=== PATIENT | male | born 1935 | race Caucasian/White ===

== ENCOUNTER 2017-02-14 17:08 | Emergency (ER) | payer MEDICARE ==
[2016-07-28 13:57] VITALS: BMI 29.1
[~2017-02-14 17:08] MED LIST: BAYER CHEWABLE81 MG PO; CARTIA XT180 MG PO; COZAAR50 MG PO; ELIQUIS5 MG PO; K-DUR20 MEQ PO; LIPITOR40 MG PO; LISINOPRIL10 MG PO; NIACIN100 MG PO; OSTEO BI-FLEX1 EAC1 PO; PAMELOR75 MG PO; PREVACID15 MG PO; TIAZAC/CARDIZE180 MG PO; VITAMIN B-121000 MCG PO; VITAMIN C1000 MG PO; VITAMIN D31000 UNIT PO
[2017-02-14 18:30] LABS: BASOPHILS 0.2 % (0.0-2.0); EOSINOPHILS 1.2 % (0-7); HEMATOCRIT 39.5 % (42.0-54.0); HEMOGLOBIN 13.1 g/dL (13.5-17.5); IMMATURE GRANULOCYTES 0.1 % (0-5); MCH 35.3 pg (26.0-34.0); MCHC 33.2 g/dL (31.0-37.0); MCV 106.5 fL (80.0-100.0); MEAN PLATELET VOLUME 10.4 fL (7.4-10.4); MONOCYTES 7.5 % (2-11); PLATELET COUNT 177 10x3/uL (130-400); RBC 3.71 10x6/uL (4.20-6.10); RDW 13.7 % (11.5-14.5)
[2017-02-14 18:38] LABS: INR 0.91 (0.85-1.17); PROTIME 12.1 SECONDS (11.6-15.0)
[2017-02-14 18:47] LABS: ALBUMIN 4.1 g/dL (3.4-5.0); ALKALINE PHOSPHATASE 112 U/L (46-116); ALT (SGPT) 26 U/L (10-68); AMYLASE - SERUM 57 U/L (25-115); BILIRUBIN - TOTAL 0.31 mg/dL (0.2-1.3); CALC OSMOLALITY 280 mosm/kg (275-300); CALCIUM 9.2 mg/dL (8.5-10.1); CARBON DIOXIDE 29.3 mmol/L (21.0-32.0); CHLORIDE - SERUM 104 mmol/L (98-107); CREATININE - SERUM 0.9 mg/dL (0.6-1.3); GLUCOSE 114 mg/dL (74-106); LIPASE 83 U/L (73-393); POTASSIUM - SERUM 4.3 mmol/L (3.5-5.1); PROTEIN - SERUM 6.8 g/dL (6.4-8.2); SODIUM 141 mmol/L (136-145); UREA NITROGEN 11 mg/dL (7-18); eGFR NON AFRICAN AMERICAN 86 mL/min (90-120)
[2017-02-14 18:59] LABS: APTT < 20.0 SECONDS (22.8-39.4)
== END 2017-02-14 20:09 | disposition home or self-care (01) ==
LOC: D.ER 17:08
PROVIDERS: Family Medicine
DX: R10.13 Epigastric pain (principal); I10 Essential (primary) hypertension; I21.4 Non-ST elevation (NSTEMI) myocardial infarction; I26.99 Other pulmonary embolism without acute cor pulmonale

== ENCOUNTER 2017-12-17 19:20 | Observation (INO) | payer MEDICARE ==
[~2017-12-17] VITALS: Ht 157.5 cm; Wt 72.0 kg
[2017-12-17 20:53] LABS: BASOPHILS 0 % (0-2); EOSINOPHILS 0 % (0-7); HEMATOCRIT 42.7 % (42.0-54.0); HEMOGLOBIN 14.6 g/dL (13.5-17.5); IMMATURE GRANULOCYTES 0.1 % (0-5); LYMPHOCYTES 21.2 % (15-50); MCH 35.9 pg (26.0-34.0); MCHC 34.2 g/dL (31.0-37.0); MCV 104.9 fL (80.0-100.0); MEAN PLATELET VOLUME 10.7 fL (7.4-10.4); MONOCYTES 9.6 % (2-11); NEUTROPHILS 69.1 % (40-80); PLATELET COUNT 170 10x3/uL (130-400); RBC 4.07 10x6/uL (4.20-6.10); RDW 14.1 % (11.5-14.5); WBC 8.4 10x3/uL (4.8-10.8)
[2017-12-18 03:04] VITALS: BP 127/59; BMI 29.6
[2017-12-18 07:00] VITALS: BP 122/86
[2017-12-18 12:33] LABS: ALBUMIN 3.1 g/dL (3.4-5.0); ALKALINE PHOSPHATASE 91 U/L (46-116); ALT (SGPT) 37 U/L (10-68); BILIRUBIN - TOTAL 0.43 mg/dL (0.2-1.3); CALC OSMOLALITY 285 mosm/kg (275-300); CALCIUM 8.1 mg/dL (8.5-10.1); CARBON DIOXIDE 28.1 mmol/L (21.0-32.0); CHLORIDE - SERUM 104 mmol/L (98-107); GLUCOSE 99 mg/dL (74-106); POTASSIUM - SERUM 3.5 mmol/L (3.5-5.1); PROTEIN - SERUM 5.7 g/dL (6.4-8.2); SODIUM 142 mmol/L (136-145); UREA NITROGEN 20 mg/dL (7-18); eGFR NON AFRICAN AMERICAN 76 mL/min (90-120)
[2017-12-18 12:41] VITALS: BP 155/70
[2017-12-18 17:02] VITALS: BP 140/74
[2017-12-18 22:06] VITALS: BP 120/57
[2017-12-19 05:05] VITALS: BP 103/61
[2017-12-19 05:12] LABS: BASOPHILS 0 % (0-2); EOSINOPHILS 0.1 % (0-7); HEMATOCRIT 37.5 % (42.0-54.0); HEMOGLOBIN 12.6 g/dL (13.5-17.5); IMMATURE GRANULOCYTES 0.1 % (0-5); LYMPHOCYTES 28.7 % (15-50); MCHC 33.6 g/dL (31.0-37.0); MCV 104.2 fL (80.0-100.0); MEAN PLATELET VOLUME 10.3 fL (7.4-10.4); MONOCYTES 8.1 % (2-11); PLATELET COUNT 143 10x3/uL (130-400); RDW 13.9 % (11.5-14.5); WBC 7.2 10x3/uL (4.8-10.8)
[2017-12-19 05:37] LABS: CALC OSMOLALITY 280 mosm/kg (275-300); CARBON DIOXIDE 26.8 mmol/L (21.0-32.0); CHLORIDE - SERUM 104 mmol/L (98-107); CREATININE - SERUM 0.9 mg/dL (0.6-1.3); GLUCOSE 88 mg/dL (74-106); POTASSIUM - SERUM 3.2 mmol/L (3.5-5.1); SODIUM 141 mmol/L (136-145); UREA NITROGEN 16 mg/dL (7-18); eGFR NON AFRICAN AMERICAN 86 mL/min (90-120)
[2017-12-19 09:37] VITALS: BP 110/53
[2017-12-19 10:56] VITALS: Ht 157.5 cm; Wt 72.0 kg
[2017-12-19 11:41] VITALS: BP 114/61
[2017-12-19] MEDS ORDERED: TAMIFLU75 MG PO (14:02)
== END 2017-12-19 16:05 | disposition home or self-care (01) ==
LOC: D.ER 19:20 → D.M2 12-18 00:41 → OBSVTIME 12-18 00:41 → D.M2 12-19 16:05
PROVIDERS: Emergency Medicine; Internal Medicine Nephrology
DX: J10.1 Influenza due to other identified influenza virus with other respiratory manifestations (principal); J96.01 Acute respiratory failure with hypoxia; K21.9 Gastro-esophageal reflux disease without esophagitis; I25.10 Atherosclerotic heart disease of native coronary artery without angina pectoris; I10 Essential (primary) hypertension; Z86.73 Personal history of transient ischemic attack (TIA), and cerebral infarction without residual deficits; Z86.711 Personal history of pulmonary embolism

== ENCOUNTER → 2018-02-14 14:34 | Outpatient (CLI) | payer MEDICARE ==
[2017-12-19 10:56] VITALS: BMI 29.0
[~2018-02-14 14:34] MED LIST changes: +TAMIFLU75 MG PO
== END | disposition home or self-care (01) ==
LOC: D.US 14:34
DX: R60.9 Edema, unspecified (principal); M79.662 Pain in left lower leg; M79.661 Pain in right lower leg

== ENCOUNTER 2018-03-02 12:20 | Emergency (ER) | payer MEDICARE ==
[2017-12-19 10:56] VITALS: BMI 29.0
[2018-03-02 13:19] LABS: APPEARANCE CLEAR (CLEAR); BILIRUBIN NEGATIVE (NEGATIVE); COLOR YELLOW (YELLOW); GLUCOSE NEGATIVE (NEGATIVE); KETONE NEGATIVE (NEGATIVE); NITRITE NEGATIVE (NEGATIVE); PROTEIN NEGATIVE (NEGATIVE); SPECIFIC GRAVITY 1.005 (1.005-1.020); UROBILINOGEN NORMAL (NORMAL)
[2018-03-02 13:42] LABS: BASOPHILS 0 % (0-2); EOSINOPHILS 2.5 % (0-7); HEMATOCRIT 40.2 % (42.0-54.0); HEMOGLOBIN 13.6 g/dL (13.5-17.5); LYMPHOCYTES 36.2 % (15-50); MCH 36.2 pg (26.0-34.0); MCHC 33.8 g/dL (31.0-37.0); MCV 106.9 fL (80.0-100.0); MEAN PLATELET VOLUME 10.1 fL (7.4-10.4); MONOCYTES 12.1 % (2-11); NEUTROPHILS 49.2 % (40-80); PLATELET COUNT 200 10x3/uL (130-400); RBC 3.76 10x6/uL (4.20-6.10); RDW 14.3 % (11.5-14.5); WBC 4.9 10x3/uL (4.8-10.8)
[2018-03-02 13:50] LABS: INR 1.41 (0.85-1.17); PROTIME 16.8 SECONDS (11.6-15.0)
[2018-03-02 13:51] LABS: APTT 37.2 SECONDS (22.8-39.4)
[2018-03-02 13:57] LABS: ALBUMIN 3.9 g/dL (3.4-5.0); ALKALINE PHOSPHATASE 107 U/L (46-116); ALT (SGPT) 21 U/L (10-68); BILIRUBIN - TOTAL 0.39 mg/dL (0.2-1.3); CALC OSMOLALITY 284 mosm/kg (275-300); CALCIUM 9.6 mg/dL (8.5-10.1); CARBON DIOXIDE 27.6 mmol/L (21.0-32.0); CHLORIDE - SERUM 105 mmol/L (98-107); GLUCOSE 92 mg/dL (74-106); POTASSIUM - SERUM 3.8 mmol/L (3.5-5.1); PROTEIN - SERUM 7.3 g/dL (6.4-8.2); SODIUM 143 mmol/L (136-145); UREA NITROGEN 12 mg/dL (7-18); eGFR NON AFRICAN AMERICAN 76 mL/min (90-120)
[2018-03-02 14:05] LABS: CREATINE KINASE 52 UL (21-232); LIPASE 73 U/L (73-393); PRO BNP 236 pg/mL (0-450); TROPONIN-I < 0.017 ng/mL (0.000-0.060)
== END 2018-03-02 14:42 | disposition home or self-care (01) ==
LOC: D.ER 12:20
PROVIDERS: Family Medicine
DX: R53.1 Weakness (principal); Z86.718 Personal history of other venous thrombosis and embolism; I10 Essential (primary) hypertension; I73.00 Raynaud's syndrome without gangrene

== ENCOUNTER 2018-11-16 09:41 | Observation (INO) | payer MEDICARE, OTHER ==
[~2018-11-16] VITALS: Ht 157.5 cm; Wt 72.7 kg
[2018-11-16] VITALS (7 sets, daily range): BP systolic 112–131; BP diastolic 56–77; Ht 157.5 cm; Wt 72.7 kg
[2018-11-16] MEDS ORDERED: METOLAZONE2.5 MG PO (09:57)
[2018-11-16] MEDS ORDERED: LASIX20 MG PO (09:57)
[2018-11-16] MEDS ORDERED: CLOTRIM ANTIFUN15 GM TOPICAL (10:00)
[2018-11-16] MEDS ORDERED: KENALOG 0.1% OI80 GM TOPICAL (10:00)
[2018-11-16 10:28] LABS: BASOPHILS 0.1 % (0-2); EOSINOPHILS 1.5 % (0-7); HEMATOCRIT 44.7 % (42.0-54.0); HEMOGLOBIN 15.2 g/dL (13.5-17.5); IMMATURE GRANULOCYTES 0.1 % (0-5); LYMPHOCYTES 30.8 % (15-50); MCH 35.8 pg (26.0-34.0); MCV 105.2 fL (80.0-100.0); MEAN PLATELET VOLUME 10.7 fL (7.4-10.4); MONOCYTES 8.1 % (2-11); NEUTROPHILS 59.4 % (40-80); RBC 4.25 10x6/uL (4.20-6.10); RDW 13.9 % (11.5-14.5); WBC 9.3 10x3/uL (4.8-10.8)
[2018-11-16 10:31] LABS: PLATELET COUNT 241 10x3/uL (130-400)
[2018-11-16 10:36] LABS: APTT 28.1 SECONDS (22.8-39.4); INR 1.02 (0.85-1.17); PROTIME 12.9 SECONDS (11.6-15.0)
[2018-11-16 10:43] LABS: ALBUMIN 3.9 g/dL (3.4-5.0); ALKALINE PHOSPHATASE 121 U/L (46-116); ALT (SGPT) 26 U/L (10-68); BILIRUBIN - TOTAL 0.48 mg/dL (0.2-1.3); CALC OSMOLALITY 281 mosm/kg (275-300); CALCIUM 9.4 mg/dL (8.5-10.1); CARBON DIOXIDE 25.5 mmol/L (21.0-32.0); CHLORIDE - SERUM 99 mmol/L (98-107); CREATININE - SERUM 1.6 mg/dL (0.6-1.3); GLUCOSE 113 mg/dL (74-106); POTASSIUM - SERUM 4.5 mmol/L (3.5-5.1); PROTEIN - SERUM 6.9 g/dL (6.4-8.2); SODIUM 138 mmol/L (136-145); UREA NITROGEN 26 mg/dL (7-18); eGFR NON AFRICAN AMERICAN 44 mL/min (90-120)
[2018-11-16 10:53] LABS: CKMB 0.4 U/L (0.0-3.6); CREATINE KINASE 50 UL (21-232)
[2018-11-16 10:54] LABS: TROPONIN-I < 0.017 ng/mL (0.000-0.060)
[2018-11-16 12:28] LABS: APPEARANCE CLEAR (CLEAR); BILIRUBIN NEGATIVE (NEGATIVE); COLOR YELLOW (YELLOW); GLUCOSE NEGATIVE (NEGATIVE); KETONE NEGATIVE (NEGATIVE); NITRITE NEGATIVE (NEGATIVE); PROTEIN NEGATIVE (NEGATIVE); SPECIFIC GRAVITY 1.015 (1.005-1.020); UROBILINOGEN NORMAL (NORMAL)
--- NOTE | 2018-11-16 13:22 | MORECARE ---
CASE MANAGEMENT DISCHARGE SUMMARY PATIENT: NEISHA GAN UNIT: [id number] ADM DATE: 11/16/18 AGE: 83 : 35 SEX: M ROOM/BED: D.2109 AUTHOR: TORIBIO LUKE PHYSICIAN: REFERRING PHYSICIAN: MASTER GARCIA MD DATE OF SERVICE: 11/16/18 Discharge Plan Patient Name: [facility]ISHA GAN [facility] [facility] 1935 Planned Disposition: Anticipated Discharge Date: Discharge Date: Expected LOS: Initial Reviewer: [email or web address] Initial Review Date: 11/16/2018 Generated: 11/16/18 2:22 pm Patient Name: NEISHA GAN Page 24017 at 1322 All edits/amendments must be made on the electronic document DICTATION DATE: 11/16/18 1322 MECHANICAL COMMISSIONING ENGINEER: MARK 11/16/18 1322 RPT#: [id number] DC DATE: STATUS: ADM IN [facility] [address] [place] [address] END OF REPORT
--- NOTE | 2018-11-16 13:30 | MORECARE ---
CASE MANAGEMENT DISCHARGE SUMMARY PATIENT: NEISHA CHRISTIAN UNIT: [id number] ADM DATE: 11/16/18 AGE: 83 : 35 SEX: M ROOM/BED: D.2109 AUTHOR: TORIBIO LUKE PHYSICIAN: REFERRING PHYSICIAN: MASTER GARCIA MD DATE OF SERVICE: 11/16/18 Discharge Plan Patient Name: NEISHA CHRISTIAN [facility] [facility] 1935 Planned Disposition: Anticipated Discharge Date: Discharge Date: Expected LOS: Initial Reviewer: [email or web address] Initial Review Date: 11/16/2018 Generated: 11/16/18 2:30 pm DCPIA - Discharge Planning Initial Assessment Updated by [email or web address]: Ann Benavidez on 11/16/18 1:25 pm * Is the patient Alert and Oriented? Yes * How many steps to enter\exit or inside your home? ramp w/lubin * PCP Dr. Raymon Knight * Pharmacy [facility] * Preadmission Environment Home with Family * ADLs Independent * Equipment Cane * Other Equipment Na * List name and contact numbers for known caregivers / representatives who currently or will assist patient after discharge: Anamaria Christian (spouse) [phone]. * Verbal permission to speak to the caregivers and representatives has been obtained from the patient. Yes * Community resources currently utilized None * Please name any agencies selected above. NA * Additional services required to return to the preadmission environment? Yes * Can the patient safely return to the preadmission environment? No * Has this patient been hospitalized within the prior 30 days at any hospital? No Last DP export: 11/16/18 12:22 Patient Name: NEISHA CHRISTIAN Page [id number] at 1330 All edits/amendments must be made on the electronic document DICTATION DATE: 11/16/18 1330 CARDROOM ATTENDANT: MARK 11/16/18 1330 RPT#: [id number] DC DATE: STATUS: ADM IN [facility] [address] [place] [address] END OF REPORT
--- NOTE | 2018-11-16 13:38 | MORECARE ---
CASE MANAGEMENT DISCHARGE SUMMARY PATIENT: NEISHA CHRISTIAN UNIT: [id number] ADM DATE: 11/16/18 AGE: 83 : 35 SEX: M ROOM/BED: D.2109 AUTHOR: MARLY,DOC PHYSICIAN: REFERRING PHYSICIAN: MASTER GARCIA MD DATE OF SERVICE: 11/16/18 Discharge Plan Patient Name: NEISHA CHRISTIAN Facility: [facility]:[place] : 1935 Planned Disposition: Anticipated Discharge Date: Discharge Date: Expected LOS: Initial Reviewer: [email or web address] Initial Review Date: 11/16/2018 Generated: 11/16/18 2:38 pm Comments DCP- Discharge Planning Updated by [email or web address]: Ann Benavidez on 11/16/18 12:[address] CM met with patient & in ER to discuss dc needs/plans. Patient gives permission to speak with Anamaria present. A/O X3. PCP: Dr. Raymon Knight. Pharmacy: [facility]. HHS: Never. DME: Cane, ramp w/rails into the home. Emergency contact: Anamaria Christian ( 8 years) [phone]. Discussed HHS, OP & Rehab with patient. States he was Independent with ADL's up until just before Valentines, when he became extremely weak. Patient would BENEFIT REHAB EVAL and is in agreement to same. Denies being hospitalized within past 30 days. CM will follow and assist with dc needs/plans PRN. Ann Benavidez RN CM DCPIA - Discharge Planning Initial Assessment Updated by [email or web address]: Ann Benavidez on 11/16/18 1:25 pm * Is the patient Alert and Oriented? Yes * How many steps to enter\exit or inside your home? ramp w/lubin * PCP Dr. Raymon Knight * Pharmacy [facility] * Preadmission Environment Home with Family * ADLs Independent * Equipment Cane * Other Equipment Na * List name and contact numbers for known caregivers / representatives who currently or will assist patient after discharge: Anamaria Christian (spouse) [phone]. * Verbal permission to speak to the caregivers and representatives has been obtained from the patient. Yes * Community resources currently utilized None * Please name any agencies selected above. NA * Additional services required to return to the preadmission environment? Yes * Can the patient safely return to the preadmission environment? No * Has this patient been hospitalized within the prior 30 days at any hospital? No Last DP export: 11/16/18 12:30 Patient Name: NEISHA CHRISTIAN Page 14219 at 1338 All edits/amendments must be made on the electronic document DICTATION DATE: 11/16/181337 REGISTERED VETERINARY TECHNICIAN: MARK 11/16/181337 RPT#: [id number] DC DATE: STATUS: ADM IN [facility] [address] [place] [address] END OF REPORT
[2018-11-17 03:45] VITALS: BP 135/70
[2018-11-17 06:02] LABS: BASOPHILS 0.2 % (0-2); EOSINOPHILS 2.1 % (0-7); HEMATOCRIT 37.2 % (42.0-54.0); HEMOGLOBIN 12.2 g/dL (13.5-17.5); IMMATURE GRANULOCYTES 0.2 % (0-5); LYMPHOCYTES 31.4 % (15-50); MCH 34.6 pg (26.0-34.0); MCHC 32.8 g/dL (31.0-37.0); MCV 105.4 fL (80.0-100.0); MEAN PLATELET VOLUME 10.8 fL (7.4-10.4); MONOCYTES 10.4 % (2-11); NEUTROPHILS 55.7 % (40-80); PLATELET COUNT 205 10x3/uL (130-400); RBC 3.53 10x6/uL (4.20-6.10); RDW 13.9 % (11.5-14.5); WBC 6.2 10x3/uL (4.8-10.8)
[2018-11-17 06:03] LABS: ANION GAP 11.6 mmol/L (8-16); BILIRUBIN - TOTAL 0.34 mg/dL (0.2-1.3); CALCIUM 8.5 mg/dL (8.5-10.1); CARBON DIOXIDE 28.3 mmol/L (21.0-32.0); CREATININE - SERUM 1.2 mg/dL (0.6-1.3); MAGNESIUM - SERUM 1.6 mg/dL (1.8-2.4); POTASSIUM - SERUM 3.9 mmol/L (3.5-5.1); PROTEIN - SERUM 5.8 g/dL (6.4-8.2)
[2018-11-17 06:04] LABS: ALBUMIN 2.9 g/dL (3.4-5.0)
[2018-11-17 08:13] VITALS: BP 158/69
--- NOTE | 2018-11-17 09:17 | MORECARE ---
CASE MANAGEMENT DISCHARGE SUMMARY PATIENT: NEISHA CHRISTIAN UNIT: [id number] ADM DATE: 11/16/18 AGE: 83 : 35 SEX: M ROOM/BED: D.2109 AUTHOR: MARLY,DOC PHYSICIAN: REFERRING PHYSICIAN: MASTER GARCIA MD DATE OF SERVICE: 11/17/18 Discharge Plan Patient Name: NEISHA CHRISTIAN Facility: [facility]:[place] : 1935 Planned Disposition: Inpatient Rehab Anticipated Discharge Date: Discharge Date: Expected LOS: Initial Reviewer: [email or web address] Initial Review Date: 11/16/2018 Generated: 11/17/18 10:17 am DCP- Discharge Planning Updated by [email or web address]: Ann Benavidez on 11/16/18 12:[address] CM met with patient & in ER to discuss dc needs/plans. Patient gives permission to speak with Anamaria present. A/O X3. PCP: Dr. Raymon Knight. Pharmacy: [facility]. HHS: Never. DME: Cane, ramp w/rails into the home. Emergency contact: Anamaria Christian ( 8 years) [phone]. Discussed HHS, OP & Rehab with patient. States he was Independent with ADL's up until just before [place], when he became extremely weak. Patient would BENEFIT REHAB EVAL and is in agreement to same. Denies being hospitalized within past 30 days. CM will follow and assist with dc needs/plans PRN. Ann Benavidez RN, CM DCPIA - Discharge Planning Initial Assessment Updated by [email or web address]: Ann Benavidez on 11/16/18 1:25 pm * Is the patient Alert and Oriented? Yes * How many steps to enter\exit or inside your home? ramp w/lubin * PCP Dr. Raymon Knight * Pharmacy [facility] * Preadmission Environment Home with Family * ADLs Independent * Equipment Cane * Other Equipment Na * List name and contact numbers for known caregivers / representatives who currently or will assist patient after discharge: Anamaria Christian (spouse) [phone]. * Verbal permission to speak to the caregivers and representatives has been obtained from the patient. Yes * Community resources currently utilized None * Please name any agencies selected above. NA * Additional services required to return to the preadmission environment? Yes * Can the patient safely return to the preadmission environment? No * Has this patient been hospitalized within the prior 30 days at any hospital? No Last DP export: 11/16/18 12:38 Patient Name: NEISHA CHRISTIAN Page 85926 at 0917 All edits/amendments must be made on the electronic document DICTATION DATE: 11/17/18916 SHEARING MACHINE FEEDER: MARK 11/17/18916 RPT#: [id number] DC DATE: STATUS: ADM IN [facility] [address] [place] [address] END OF REPORT
[2018-11-17 11:23] VITALS: BP 137/59
[2018-11-17] MEDS ORDERED: PROTONIX40 MG PO (11:36)
--- NOTE | 2018-11-17 16:39 | MORECARE ---
CASE MANAGEMENT DISCHARGE SUMMARY PATIENT: NEISHA CHRISTIAN UNIT: [id number] ADM DATE: 11/16/18 AGE: 83 : 35 SEX: M ROOM/BED: D.2109 AUTHOR: MARLY,DOC PHYSICIAN: REFERRING PHYSICIAN: MASTER GARCIA MD DATE OF SERVICE: 11/17/18 Discharge Plan Patient Name: NEISHA CHRISTIAN Facility: [facility]:[place] : 1935 Planned Disposition: Home Anticipated Discharge Date: 11/17/18 Discharge Date: 11/17/2018 Expected LOS: 1 Initial Reviewer: [email or web address] Initial Review Date: 11/16/2018 Generated: 11/17/18 5:38 pm DCP- Discharge Planning Updated by [email or web address]: Ann Benavidez on 11/16/18 12:[address] CM met with patient & in ER to discuss dc needs/plans. Patient gives permission to speak with Anamaria present. A/O X3. PCP: Dr. Raymon Knight. Pharmacy: [facility]. HHS: Never. DME: Cane, ramp w/rails into the home. Emergency contact: Anamaria Christina ( 8 years) [phone]. Discussed HHS, OP & Rehab with patient. States he was Independent with ADL's up until just before [place], when he became extremely weak. Patient would BENEFIT REHAB EVAL and is in agreement to same. Denies being hospitalized within past 30 days. CM will follow and assist with dc needs/plans PRN. Ann Benavidez RN, CM DCPIA - Discharge Planning Initial Assessment Updated by [email or web address]: Ann Benavidez on 11/16/18 1:25 pm * Is the patient Alert and Oriented? Yes * How many steps to enter\exit or inside your home? ramp w/lubin * PCP Dr. Raymon Knight * Pharmacy [facility] * Preadmission Environment Home with Family * ADLs Independent * Equipment Cane * Other Equipment Na * List name and contact numbers for known caregivers / representatives who currently or will assist patient after discharge: Anamaria Christian (spouse) [phone]. * Verbal permission to speak to the caregivers and representatives has been obtained from the patient. Yes * Community resources currently utilized None * Please name any agencies selected above. NA * Additional services required to return to the preadmission environment? Yes * Can the patient safely return to the preadmission environment? No * Has this patient been hospitalized within the prior 30 days at any hospital? No Last DP export: 11/17/18 8:17 Patient Name: NEISHA CHRISTIAN Page [id number] at 1639 All edits/amendments must be made on the electronic document DICTATION DATE: 11/17/181637 FITTING ROOM ASSOCIATE: MARK 11/17/181637 RPT#: [id number] DC DATE:11/17/18 STATUS: DIS IN [facility] [address] [place] [address] END OF REPORT
== END 2018-11-17 15:29 | disposition home or self-care (01) ==
LOC: D.ER 09:41 → D.EDHOLD 12:56 → OBSVTIME 12:56 → D.M2 13:12
PROVIDERS: Family Medicine; ADMIT Family Medicine
DX: N17.9 Acute kidney failure, unspecified (principal); E86.0 Dehydration; T50.2X6A Underdosing of carbonic-anhydrase inhibitors, benzothiadiazides and other diuretics, initial encounter; Z91.138 Patient's unintentional underdosing of medication regimen for other reason; I10 Essential (primary) hypertension; E78.5 Hyperlipidemia, unspecified; I25.10 Atherosclerotic heart disease of native coronary artery without angina pectoris; Z86.73 Personal history of transient ischemic attack (TIA), and cerebral infarction without residual deficits; Z86.711 Personal history of pulmonary embolism; Z79.01 Long term (current) use of anticoagulants; K21.9 Gastro-esophageal reflux disease without esophagitis; E83.42 Hypomagnesemia

== ENCOUNTER → 2019-01-21 13:21 | Outpatient (CLI) | payer MEDICARE, OTHER ==
[2018-11-16 15:04] VITALS: BMI 29.7
[~2019-01-21 13:21] MED LIST changes: +CLEOCIN HCL300 MG PO; +CLOTRIM ANTIFUN15 GM TOPICAL; +FLORASTOR250 MG PO; +KEFLEX500 MG PO; +KENALOG 0.1% OI80 GM TOPICAL; +LASIX20 MG PO; +METOLAZONE2.5 MG PO; +PROTONIX40 MG PO
== END | disposition home or self-care (01) ==
LOC: D.LAB 13:21
PROVIDERS: ATTEND Urology
DX: Z12.5 Encounter for screening for malignant neoplasm of prostate (principal)

== ENCOUNTER 2019-01-24 13:04 | Emergency (ER) | payer MEDICARE ==
[~2019-01-24] VITALS: Ht 157.5 cm; Wt 73.6 kg
[~2019-01-24 13:04] MED LIST changes: -CLEOCIN HCL300 MG PO; -FLORASTOR250 MG PO; -KEFLEX500 MG PO
[2019-01-24] MEDS ORDERED: KEFLEX500 MG PO (15:26)
[2019-01-24] MEDS ORDERED: FLORASTOR250 MG PO (15:26)
[2019-01-24] MEDS ORDERED: CLEOCIN HCL300 MG PO (15:26)
[2019-01-24 15:56] VITALS: BP 138/79
[2019-01-27 10:12] VITALS: Ht 157.5 cm; Wt 73.6 kg
== END 2019-01-24 15:57 | disposition home or self-care (01) ==
LOC: D.ER 13:04
DX: L02.612 Cutaneous abscess of left foot (principal)

== ENCOUNTER 2019-04-13 10:56 | Emergency (ER) | payer MEDICARE ==
[~2019-04-13] VITALS: Ht 157.5 cm; Wt 72.7 kg
[~2019-04-13 10:56] MED LIST changes: +CLEOCIN HCL300 MG PO; +FLORASTOR250 MG PO; +KEFLEX500 MG PO
[2019-04-13 10:58] VITALS: Ht 157.5 cm; Wt 72.7 kg
[2019-04-13] MEDS ORDERED: ACETAMINOPHEN500 M1 PO (12:46)
[2019-04-13] MEDS ORDERED: IBUPROFEN800 MG PO (12:46)
[2019-04-13] MEDS ORDERED: CYCLOBENZAPRINE10 MG PO (12:46)
[2019-04-13 13:40] VITALS: BP 136/82
== END 2019-04-13 13:21 | disposition home or self-care (01) ==
LOC: D.ER 10:56
DX: S46.001A Unspecified injury of muscle(s) and tendon(s) of the rotator cuff of right shoulder, initial encounter (principal); X58.XXXA Exposure to other specified factors, initial encounter; Y93.89 Activity, other specified; Y92.89 Other specified places as the place of occurrence of the external cause

== ENCOUNTER → 2019-10-07 10:27 | Outpatient (CLI) | payer MEDICARE ==
[2019-04-13 10:58] VITALS: BMI 29.3
[~2019-10-07 10:27] MED LIST changes: +ACETAMINOPHEN500 M1 PO; +CYCLOBENZAPRINE10 MG PO; +IBUPROFEN800 MG PO
== END | disposition home or self-care (01) ==
LOC: D.HCCECHO 10:27
PROVIDERS: ATTEND Internal Medicine Cardiovascular Disease
DX: I10 Essential (primary) hypertension (principal)

== ENCOUNTER 2019-11-20 13:12 | Emergency (ER) | payer MEDICARE ==
[~2019-11-20] VITALS: Ht 157.5 cm; Wt 70.5 kg
[2019-11-20 13:21] VITALS: Ht 157.5 cm; Wt 70.5 kg
[2019-11-20 14:10] LABS: BASOPHILS 0.2 % (0-2); EOSINOPHILS 1.4 % (0-7); HEMOGLOBIN 12.3 g/dL (13.5-17.5); IMMATURE GRANULOCYTES 0.2 % (0-5); MCHC 33.2 g/dL (31.0-37.0); MCV 105.4 fL (80.0-100.0); MEAN PLATELET VOLUME 10.2 fL (7.4-10.4); MONOCYTES 11.8 % (2-11); NEUTROPHILS 64.4 % (40-80); PLATELET COUNT 214 10x3/uL (130-400); RBC 3.51 10x6/uL (4.20-6.10); WBC 6.3 10x3/uL (4.8-10.8)
[2019-11-20 14:19] LABS: CALC OSMOLALITY 287 mosm/kg (275-300); CALCIUM 8.8 mg/dL (8.5-10.1); CHLORIDE - SERUM 105 mmol/L (98-107); CREATININE - SERUM 1.4 mg/dL (0.6-1.3); GLUCOSE 87 mg/dL (74-106); POTASSIUM - SERUM 4.4 mmol/L (3.5-5.1); SODIUM 145 mmol/L (136-145); UREA NITROGEN 13 mg/dL (7-18); eGFR NON AFRICAN AMERICAN 51 mL/min (90-120)
[2019-11-20 14:20] LABS: INR 1.13 (0.85-1.17)
[2019-11-20 14:37] LABS: ALBUMIN 3.6 g/dL (3.4-5.0); ALKALINE PHOSPHATASE 102 U/L (46-116); ALT (SGPT) 17 U/L (10-68); BILIRUBIN - TOTAL 0.28 mg/dL (0.2-1.3); CKMB 0.7 U/L (0.0-3.6); CREATINE KINASE 55 UL (21-232); MAGNESIUM - SERUM 1.9 mg/dL (1.8-2.4); PROTEIN - SERUM 6.2 g/dL (6.4-8.2); THYROID STIMULATING HORMONE 1.33 uIU/mL (0.36-3.74); TROPONIN-I < 0.017 ng/mL (0.000-0.060)
[2019-11-20] MEDS ORDERED: MECLIZINE HCL25 MG PO (16:25)
[2019-11-20 16:54] VITALS: BP 142/77
== END 2019-11-20 16:55 | disposition home or self-care (01) ==
LOC: D.ER 13:12
PROVIDERS: Family Medicine
DX: H81.10 Benign paroxysmal vertigo, unspecified ear (principal); Z86.73 Personal history of transient ischemic attack (TIA), and cerebral infarction without residual deficits; I10 Essential (primary) hypertension

== ENCOUNTER → 2019-11-26 18:50 | Outpatient (CLI) | payer MEDICARE ==
[2019-11-20 13:21] VITALS: BMI 28.4
[~2019-11-26 18:50] MED LIST changes: +MECLIZINE HCL25 MG PO
== END | disposition home or self-care (01) ==
LOC: D.LABREF 18:50
PROVIDERS: ATTEND Orthopaedic Surgery
DX: M19.011 Primary osteoarthritis, right shoulder (principal)

== ENCOUNTER 2020-03-17 07:10 | Outpatient (CLI) | payer MEDICARE ==
[~2020-03-17] VITALS: Ht 157.5 cm; Wt 63.4 kg
--- NOTE | ~2020-03-17 | HEMODYNAMI ---
PATIENT:NEISHA GAN MEDICAL RECORD: [id number] : 35 LOCATION:[facility] ADMISSION DATE: 03/17/20 Generatedon:03/17/20209:28 Patient name: NEISHA GAN Patient #: [id number] SSN: [id number] : 1935 Date of study: 03/17/2020 Page: Of Hemodynamic Procedure Report Patient Data Patient Demographics Procedure consent was obtained First Name: NEISHA Gender: Male Last Name: ELVIA : 1935 Patient #: [id number] Age: 84 year(s) Race: SSN: [id number] Additional ID: [id number] Contact details [address]: [address] [place] [address] State: [place] City: [place] Zip code: [address] Past Medical History Allergies Allergen Reaction Date Comments Reported Other allergy 03/17/2020 CHERATUSSIN AC,CODEINE, MEDROL, PCN, SULFA Admission Admission Data Admission Date: 03/17/2020 Admission Time: 7:10 Admit Source: Other Lab Results Lab Result Date: 03/17/2020 Lab Result Time: 0:00 Biochemistry Name Units Result Min Max BUN mg/dl 19 --(----)*- 7 18 Creatinine mg/dl 1.3 --(---*)-- 0.6 1.3 eGFR ml/min 56 *-(----)-- 90 120 NONAFRICAN CBC Name Units Result Min Max Hematocrit % 36 *-(----)-- 42 54 Hemoglobin g/dl 11.8 *-(----)-- 13.5 17.5 Procedure Procedure Types Cath Procedure Diagnostic Procedure [facility] w/Coronaries Sedation Charges Moderate Sedation up to 15 minutes Procedure Description Procedure Date Procedure Date: 03/17/2020 Procedure Start Time: 9:09 Procedure End Time: 9:27 Procedure Staff Name Function Jc Riddle MD Performing Physician Jewel Delcid RN Nurse Elisha Contreras RT Monitor Rona Tuttle RT Scrub Procedure Data Cath Procedure Fluoroscopy Diagnostic fluoroscopy Total fluoroscopy Time: 2.1 time: 2.1 min min Diagnostic fluoroscopy Total fluoroscopy dose: 350 dose: 350 mGy mGy Contrast Material Contrast Material Type Amount (ml) Isovue 300 58 Entry Location Entry Primary Successful Side Size Upsize Upsize Entry Closure Pham ccessful Closure Location (Fr) 1 (Fr) 2 (Fr) Remarks Device Remarks Femoral Right 5 Fr Exoseal artery Radial Right 6 Fr Mechanical artery Short Compression Estimated blood loss: 5 ml Diagnostic catheters Device Type Used For End Catheter Placement MULTIPACK JL 4.0 5Fr Procedure catheter MULTIPACK 3DRC 5Fr Procedure catheter MULTIPACK Pigtail 5 Fr Procedure catheter Procedure Complications No complications Procedure Medications Medication Administration Route Dosage Oxygen etCO2 Nasal cannula 2 l/min Lidocaine 2% added to field 20 Heparin Flush Bag added to field 2 bags (1000units/500ml NS) 0.9% NaCl I.V. 100 ml/hr Versed I.V. 0.5 mg Fentanyl I.V. 25 mcg Versed I.V. 0.5 mg Fentanyl I.V. 25 mcg Hemodynamics Rest HGB: 11.8 (g/dl) Heart Rate: 71 (bpm) Pressure Samples Time Site Value (mmHg) Purpose Heart Use Rate(bpm) 9:20 LV 169/19,67 Snapshot 47 Gradients Valve Time Site Site Mean SEP/DFP Peak To Heart Use 1 2 (mmHg) (sec/min) Peak Rate (mmHg) (bpm) Aortic 9:21 LV AO 60 Snapshots Pre Cath Intra NCS Post Cath Vital Signs Time Heart Resp SPO2 etCO2 NIBP (mmHg) Rhythm Pain Sedation Rate (ipm) (%) (mmHg) Status Level (bpm) 9:01:29 70 20 98 19.5 144/71(121) NSR 0 (11) 10(A) , No pain 9:05:49 70 21 98 20.2 137/71(111) NSR 0 (11) 10(A) , No pain 9:10:05 68 18 99 21 133/67(112) NSR 0 (11) 9(A) , No pain 9:14:19 68 19 99 30.8 134/66(103) NSR 0 (11) 9(A) , No pain 9:18:33 67 18 100 25.5 129/69(110) NSR 0 (11) 9(A) , No pain 9:22:49 66 19 98 12.7 129/60(99) NSR 0 (11) 10(A) , No pain 9:27:01 66 19 99 26.2 129/71(109) NSR 0 (11) 10(A) , No pain Medications Time Medication Route Dose Verified Delivered Reason Notes Effe ctiveness by by 9:00:25 Oxygen etCO2 2 Jc Buffie used for Nasal l/min Venkatesh Delcid RN procedure cannula 9:00:33 Lidocaine 2% added 20ml Jc Jc for local to vial Venkatesh Riddle MD anesthetic field 9:00:40 Heparin Flush added 2 Jc Jc used for Bag to bags Venkatesh Riddle MD procedure (1000units/500ml field NS) 9:00:49 0.9% NaCl I.V. 100 Jc Buffie Per ml/hr Venkatesh Delcid RN physician 9:03:33 Versed I.V. 0.5 Jc Buffie for mg Venkatesh Delcid RN sedation 9:03:40 Fentanyl I.V. 25 Jc Buffie for mcg Venkatesh Delcid RN sedation 9:13:22 Versed I.V. 0.5 Jc Buffie for mg Venkatesh Delcid RN sedation 9:13:27 Fentanyl I.V. 25 Jc Buffie for mcg Venkatesh Delcid RN sedation Procedure Log Time Note 8:18:44 Informed consent obtained and on chart 8:22:14 Lab Result : eGFR NONAFRICAN 56 ml/min 8:22:14 Lab Result : Creatinine 1.3 mg/dl 8:22:14 Lab Result : BUN 19 mg/dl 8:22:14 Lab Result : Hematocrit 36 % 8:22:14 Lab Result : Hemoglobin 11.8 g/dl 8:24:37 Patient allergic to Other allergyCHERATUSSIN AC,CODEINE, MEDROL, PCN, SULFA 8:28:14 Diagnostic Cath Status : Elective 8:29:02 Admit Source: Other 8:39:05 Procedure Status Elective Heart Cath (OP). 8:39:09 Jewel Delcid RN sent for patient. Start room use. 8:39:11 Time tracking: Regular hours (M-F 7:00 - 5:00) 8:39:16 Plan of Care:Hemodynamics will remain stable., Cardiac rhythm will remain stable., Comfort level will be maintained., Respiratory function will remain adequate., Patient/ family verbilizes understanding of procedure., Procedure tolerated without complication., Recovers from procedure without complications.. 8:43:47 H&P Date Dictated: 03/15/2020 Within 30 days and on chart.. 8:43:49 Pre-procedure instructions explained to patient. 8:43:49 Pre-op teaching completed and patient verbalized understanding. 8:43:52 Family unavailable. 8:43:54 Patient NPO since Midnight. 8:46:22 Stress Test: no; N/A ? 8:46:25 Lab results completed and on chart. 8:46:28 Risk of Mortality: 0.6 8:46:32 Risk of blood transfusion: 2.2 8:46:36 Risk of JULIUS: 3.1 8:47:35 Patient received from Pre/Post Procedure Room to CCL 1 Alert and oriented. Tansferred to table in Supine position. 8:47:36 Warm blankets applied, and alejandrina hugger turned on for patient comfort. 8:47:37 Correct patient and procedure confirmed by team. 8:47:37 ECG and BP/O2 sat monitors applied to patient. 8:47:48 Is the patient allergic to Iodine/contrast media? No. 8:47:49 Was the patient premedicated? Yes 8:47:51 Is patient on blood thinner?No 8:47:54 Patient diabetic? No. 8:47:55 If diabetic: On Metformin? N/A 8:47:56 ----Pre-sedation anethsthesia assessment.---- 8:48:00 Previous problem with sedation/anesthesia? No ? 8:48:01 Snore? Yes 8:48:03 Sleep apnea? No 8:48:04 Deviated septum? No 8:48:05 Opens mouth fully? Yes 8:48:06 Sticks out tongue? Yes 8:48:10 Airway obstruction? Yes ASTHMA 8:48:15 Dentures? Yes IN TIGHT 8:48:26 IV patent on arrival in left antecubital with 0.9% NaCl at O. 8:48:28 Alarms reviewed by R. N. 8:48:28 Sharps counted by scrub and verified by R.N. 9:00:01 Called and spoke with spouse of pt, Anamaria and update given. 9:00:07 Pre procedure: right dorsailis pedis pulse 2+ Normal; easily identifiable; not easily obliterated 9:00:15 Vital chart was started 9:00:25 Oxygen 2 l/min etCO2 Nasal cannula was administered by Jewel Delcid RN; used for procedure; Verbal order read back and verified. 9:00:33 Lidocaine 2% 20ml vial added to field was administered by Jc Riddle MD; for local anesthetic; Verbal order read back and verified. 9:00:35 Patient pain scale 0/10 ?. 9:00:40 Heparin Flush Bag (1000units/500ml NS) 2 bags added to field was administered by Jc Riddle MD; used for procedure; Verbal order read back and verified. 9:00:42 Baseline sample Acquired. 9:00:43 Full Disclosure recording started 9:00:47 Rhythm: sinus rhythm 9:00:49 0.9% NaCl 100 ml/hr I.V. was administered by Jewel Delcid RN; Per physician; Verbal order read back and verified. 9:00:55 Right Radial & Right Groin area was prepped with chlora-prep and draped in sterile fashion 9:01:00 Use device set Radial Dx or PCI 9:01:01 ACIST Syringe (41425) opened to sterile field. 9:01:01 Medline Cath Pack ([id number]) opened to sterile field. 9:01:02 Bag Decanter (2002S) opened to sterile field. 9:01:03 ACIST Hand Control (90963) opened to sterile field. 9:01:03 ACIST Manifold (67187) opened to sterile field. 9:01:05 MBrace Wrist Support ([id number]) opened to sterile field. 9:01:06 NEEDLE Cook 21G 4cm Radial ([id number]) opened to sterile field. 9:01:07 SHEATH 6FR RAIN ([id number]) opened to sterile field. 9:01:08 EMERALD Guide Wire (502-278) opened to sterile field. 9:03:12 --------ALL STOP TIME OUT------ 9:03:13 Final Timeout: patient, procedure, and site verified with staff and physician. All members of the team are in agreement. 9:03:15 Right Radial & Right Groin site verified by team. 9:03:19 Fire Safety Assessment: A--An alcohol-based skin anteseptic being used preoperatively., C--Open oxygen or nitrous oxide is being used., D--An ESU, laser, or fiber-optic light is being used. 9:03:22 Physical assessment completed. ASA score P 2 - A patient with mild systemic disease as per Jc Riddle MD. 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 9:03:30 Maximum allowable contrast dose (3.7 X eGFR X 0.75)158 ml. 9:03:33 Versed 0.5 mg I.V. was administered by Jewel Delcid RN; for sedation; Verbal order read back and verified. 9:03:35 Sedation plan: IV Moderate Sedation Medication:Versed, Fentanyl 9:03:40 Fentanyl 25 mcg I.V. was administered by Jewel Delcid RN; for sedation; Verbal order read back and verified. 9:08:22 Procedure started. 9::19 Local anesthetic to right radial artery with Lidocaine 2% by Jc Riddle MD.INITIAL ACCESS ONLY 9:09:27 A 6 Fr Short sheath was inserted into the Right Radial artery 9:10:47 UNABLE TO USE RADIAL GOING GROIN. 9:11:02 Use device set Femoral Dx 9:11:26 DIAGNOSTIC Multipack 5Fr catheter set ([id number]) opened to sterile field. 9:11:31 SHEATH 5FR [place] (PBA200) opened to sterile field. 9:11:42 Local anesthetic to right femoral artery with Lidocaine 2% by Jc Riddle MD.ADDITIONAL ACCESS 9:13:22 Versed 0.5 mg I.V. was administered by Jewel Delcid RN; for sedation; Verbal order read back and verified. 9::27 Fentanyl 25 mcg I.V. was administered by Jewel Delcid RN; for sedation; Verbal order read back and verified. 9:13:42 A 5 Fr sheath was inserted into the Right Femoral artery 9:13:51 A MULTIPACK JL 4.0 5Fr catheter was advanced over the wire and used for Procedure. 9:15:06 LCA angiography performed. 9:15:09 Injector settings: Ml/sec: 3, Volume: 6, 9:16:38 Catheter exchanged over wire. 9:17:08 A MULTIPACK 3DRC 5Fr catheter was advanced over the wire and used for Procedure. 9:18:04 RCA angiography performed. 9:18:08 Injector settings: Ml/sec: 3, Volume: 6, 9:18:54 Catheter exchanged over wire. 9:19:25 A MULTIPACK Pigtail 5 Fr catheter was advanced over the wire and used for Procedure. 9:20:01 LV gram done using MCMAHAN 9:20:42 Injector settings: Ml/sec: 5, Volume: 15, 9:20:44 LV hemodynamics recorded. 9:20:50 EF : 55 % 9:21:45 Catheter removed. 9:21:49 EXOSEAL 5Fr (EX500) opened to sterile field. 9:22:10 Sheath removed intact; hemostasis achieved with Exoseal to the Right Femoral artery. 9:24:16 Sheath removed intact; hemostasis achieved with Mechanical Compression to the Right Radial artery. 9:24:18 Procedure ended.(Physican Out) 9:24:28 Fluoroscopy time 02.10 minutes. 9:24:32 Flurop Dose total: 350 9:24:32 Fluoroscopy dose: 350 mGy 9:24:38 Dose Area Product 07797 mGy/cm. 9:24:43 Contrast amount:Isovue 300 58ml. 9:24:46 Maximum allowable dose exceeded? No. 9:24:47 Sharps counted by scrub and verified by R.N. 9:24:55 Post-op/insertion site Right Femoral artery dressed using a 4 x 4 and Tegaderm. 9:25:00 Post right femoral artery:stable, soft, clean and dry 9:25:01 Post Procedure Pulses reassessed and unchanged 9:25:04 Post procedure: right dorsailis pedis pulse 2+ Normal; easily identifiable; not easily obliterated. 9:25:07 Post-procedure physical assessment completed. ASA score P 2 - A patient with mild systemic disease as per Jc Riddle MD. 9:25:10 Post procedure rhythm: unchanged. 9:25:14 Estimated blood loss: 5 ml 9:25:28 Post procedure instruction explained to patient.Patient verbalizes understanding. 9:25:29 Patient needs reinforcement of post procedure teaching. 9:25:48 Procedure type changed to Cath procedure, Diagnostic procedure, LHC, LHC w/Coronaries, Sedation Charges, Moderate Sedation up to 15 minutes 9:27:27 Post right radial artery:clean and dry 9:27:32 Post-op/insertion site Right Radial artery dressed using a Bandaid. 9:27:36 Procedure and supply charges have been captured, reviewed, submitted and are correct. 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 9:27:45 See physician's report for complete and final results. 9:27:47 Report given to Pre/Post Procedure Room. 9:27:51 Patient transfered to Pre/Post Procedure Room with Stretcher. 9:27:53 Procedure ended. 9:27:53 Full Disclosure recording stopped 9:28:00 End room use (Document Last) 9:28:10 End room use (Document Last) 9:28:26 End room use (Document Last) Device Usage Item Name Manufacture Quantity Catalog Hospital Part Current Minima l Lot# / Number Charge Number Stock Stock Serial# Code ACIST Acist 1 30655 141604 [id number] 20 Syringe Medical (91404) Systems Inc Medline Medline 1 [id number] 370379 92753 023733 5 Cath Pack ([id number]) Bag Microtek 1 268361 48199 000051 5 Decanter Medical Inc. () ACIST Hand Acist 1 20797 818904 124012 036361 5 Control Medical (11932) Systems Inc ACIST Acist 1 42892 938621 063219 178458 5 Manifold Medical (06534) Systems Inc MBrace Advanced 1 140-0250-00 184096 59193 495562 5 Wrist Vascular Support Dynamics ([id number]) NEEDLE Cook Cook Medical 1 U66144 307108 223445 036938 5 21G 4cm Radial (O05321) SHEATH 6FR Cardinal 1 [id number] 883959 0096606 312058 5 [facility] (2026407) EMERALD Cardinal 1 502-455 447599 598765 199685 5 Guide Wire [facility] (502455) DIAGNOSTIC Cardinal 1 [id number] 275548 50177 320852 30 iWOPI 5Fr catheter set (GY7803) SHEATH 5FR Terumo 1 [id number] 114867 785198 102096 5 [place] (JFM928) MULTIPACK Cardinal 1 331527 5 JL 4.0 5Fr Health catheter MULTIPACK Cardinal 1 895575 5 3DRC 5Fr Health catheter MULTIPACK Cardinal 1 189676 5 Pigtail 5 Health Fr catheter EXOSEAL 5Fr Cardinal 1 EX500 498267 394855 046282 10 (EX500) Health Signature Audit [place] Stage Time Signature Unsigned Intra-Procedure 03/17/2020 Elisha Contreras 9:28:10 AM RT(R) Intra-Procedure 03/17/2020 Jewel Delcid RN 9:28:26 AM Intra-Procedure 03/17/2020 Jc Riddle MD 9:28:55 AM [facility] [address] [place] [address]
[~2020-03-17 07:10] MED LIST changes: +VITAMIN D1000 UNI1 PO; -VITAMIN D31000 UNIT PO
[2020-03-17 07:46] VITALS: BP 141/73; Ht 157.5 cm; Wt 63.4 kg
[2020-03-17 07:47] LABS: BASOPHILS 0.2 % (0-2); EOSINOPHILS 3.3 % (0-7); HEMOGLOBIN 11.8 g/dL (13.5-17.5); IMMATURE GRANULOCYTES 0.4 % (0-5); LYMPHOCYTES 30.7 % (15-50); MCH 34.3 pg (26.0-34.0); MCHC 32.8 g/dL (31.0-37.0); MCV 104.7 fL (80.0-100.0); MEAN PLATELET VOLUME 10.6 fL (7.4-10.4); NEUTROPHILS 57.4 % (40-80); PLATELET COUNT 216 10x3/uL (130-400); RBC 3.44 10x6/uL (4.20-6.10); RDW 13.8 % (11.5-14.5); WBC 5.4 10x3/uL (4.8-10.8)
[2020-03-17 08:07] LABS: ANION GAP 10.2 mmol/L (8-16); CALCIUM 9.4 mg/dL (8.5-10.1); CARBON DIOXIDE 29.4 mmol/L (21.0-32.0); CREATININE - SERUM 1.3 mg/dL (0.6-1.3); LDL-HDL RATIO 1.9 ratio (1.5-3.5); POTASSIUM - SERUM 3.6 mmol/L (3.5-5.1)
--- NOTE | 2020-03-17 09:38 | NUR ---
PT ARRIVED BY STRETCHER. PLACED ON MONITORS. ASSESSMENT COMPLETED. VSS AT THIS TIME. CALL LIGHT WITHIN REACH.
--- NOTE | 2020-03-17 09:53 | NUR ---
RIGHT GROIN DRESSING C/D/I. NO S/S OF HEMATOMA NOTED. CALL LIGHT WITHIN REACH. VSS AT THIS TIME. NO NEEDS. DENIES NAUSEA/PAIN.
--- NOTE | 2020-03-17 10:15 | NUR ---
RIGHT GROIN DRESSING C/D/I. NO S/S OF HEMATOMA NOTED. CALL LIGHT WITHIN REACH. PT RESTING COMFORTABLY. VSS. NO NEEDS AT THIS TIME.
--- NOTE | 2020-03-17 10:45 | NUR ---
RIGHT GROIN DRESSING C/D/I. NO S/S OF HEMATOMA NOTED. PT'S HEAD OF BED INC TO 30 DEGREES. TOLERATED WELL. SET UP WITH SANDWICH TRAY AND DRINK. DENIES NAUSEA/PAIN AT THIS TIME. DR. MANZANO ROUNDED AND SPOKE WITH PT.
--- NOTE | 2020-03-17 11:15 | NUR ---
PT RESTING COMFORTABLY. VSS. RIGHT GROIN DRESSING C/D/I. NO S/S OF HEMATOMA NOTED. RIGHT WRIST BANDAID IN PLACE. NO BLEEDING/HEMATOMA NOTED. CALL LIGHT WITHIN REACH.
--- NOTE | 2020-03-17 11:44 | NUR ---
RIGHT GROIN DRESSING C/D/I. NO S/S OF HEMATOMA NOTED. PIV D/C'D WITH CATH TIP INTACT. TOLERATED WELL. PT INSTRUCTED TO GET UP AND DRESSED AT THIS TIME. NO ASSISTANCE NEEDED. CALL LIGHT WITHIN REACH.
--- NOTE | 2020-03-17 11:50 | NUR ---
DISCUSSED DISCHARGE INSTRUCTIONS WITH PT. HE VOICED UNDERSTANDING. PT AMBULATED TO RESTROOM. VOIDED WITHOUT DIFFICULTY. RIGHT GROIN DRESSING C/D/I. NO S/S OF HEMATOMA NOTED.
--- NOTE | 2020-03-17 12:00 | NUR ---
PT TAKEN DOWN TO VEHICLE BY WHEELCHAIR. NO S/S OF DISTRESS NOTED. ALL BELONGINGS AND PAPERWORK IN HAND. PT'S UPDATED ON DISCHARGE INSTRUCTIONS.
== END 2020-03-17 12:00 | disposition home or self-care (01) ==
LOC: D.CATH 07:10
PROVIDERS: ATTEND Internal Medicine Cardiovascular Disease
DX: I25.110 Atherosclerotic heart disease of native coronary artery with unstable angina pectoris (principal); I10 Essential (primary) hypertension; E78.5 Hyperlipidemia, unspecified; Z86.718 Personal history of other venous thrombosis and embolism

== ENCOUNTER 2020-04-29 10:25 | Emergency (ER) | payer MEDICARE ==
[~2020-04-29] VITALS: Ht 157.5 cm; Wt 63.6 kg
[2020-04-29 10:34] VITALS: Ht 157.5 cm; Wt 63.6 kg
[2020-04-29 10:48] LABS: BASOPHILS 0.4 % (0-2); EOSINOPHILS 2.6 % (0-7); HEMATOCRIT 37.4 % (42.0-54.0); HEMOGLOBIN 12.5 g/dL (13.5-17.5); MCH 34.9 pg (26.0-34.0); MCHC 33.4 g/dL (31.0-37.0); MCV 104.5 fL (80.0-100.0); MEAN PLATELET VOLUME 10.1 fL (7.4-10.4); MONOCYTES 9.5 % (2-11); NEUTROPHILS 53.5 % (40-80); PLATELET COUNT 225 10x3/uL (130-400); RBC 3.58 10x6/uL (4.20-6.10); RDW 14.1 % (11.5-14.5); WBC 5.4 10x3/uL (4.8-10.8)
[2020-04-29 10:51] LABS: APTT 27.4 SECONDS (22.8-39.4); INR 0.97 (0.85-1.17); PROTIME 12.9 SECONDS (11.6-15.0)
[2020-04-29 10:52] LABS: CALC OSMOLALITY 278 mosm/kg (275-300); CALCIUM 9.1 mg/dL (8.5-10.1); CARBON DIOXIDE 31.5 mmol/L (21.0-32.0); CHLORIDE - SERUM 106 mmol/L (98-107); CREATININE - SERUM 1.2 mg/dL (0.6-1.3); GLUCOSE 92 mg/dL (74-106); POTASSIUM - SERUM 3.9 mmol/L (3.5-5.1); SODIUM 139 mmol/L (136-145); UREA NITROGEN 15 mg/dL (7-18); eGFR NON AFRICAN AMERICAN 61 mL/min (90-120)
[2020-04-29 11:08] LABS: BILIRUBIN NEGATIVE (NEGATIVE); GLUCOSE NEGATIVE (NEGATIVE); KETONE NEGATIVE (NEGATIVE); NITRITE NEGATIVE (NEGATIVE); SPECIFIC GRAVITY 1.005 (1.005-1.020); UROBILINOGEN NORMAL (NORMAL)
[2020-04-29 11:10] LABS: ALBUMIN 3.6 g/dL (3.4-5.0); ALKALINE PHOSPHATASE 85 U/L (30-120); ALT (SGPT) 19 U/L (10-68); CKMB 0.5 U/L (0.0-3.6); CREATINE KINASE 44 UL (21-232); PROTEIN - SERUM 6.6 g/dL (6.4-8.2); THYROID STIMULATING HORMONE 1.36 uIU/mL (0.36-3.74); TROPONIN-I < 0.017 ng/mL (0.000-0.060)
[2020-04-29 15:17] VITALS: BP 157/73
--- NOTE | 2020-05-02 13:57 | NUR ---
Recieved call from Nikko [phone] Heat Seal Operator with [facility] in [place] that patient has tested positive for COVID-19. Notified [facility] of positive culture and employee health nurse for follow up.
== END 2020-04-29 15:24 | disposition other institution (70) ==
LOC: D.ER 10:25
PROVIDERS: Family Medicine
DX: H57.04 Mydriasis (principal); R20.0 Anesthesia of skin; R53.1 Weakness; Z86.73 Personal history of transient ischemic attack (TIA), and cerebral infarction without residual deficits; I10 Essential (primary) hypertension; K21.9 Gastro-esophageal reflux disease without esophagitis

== ENCOUNTER 2021-04-08 09:46 | Emergency (ER) | payer MEDICARE ==
[~2021-04-08] VITALS: Ht 157.5 cm; Wt 65.5 kg
[~2021-04-08 09:46] MED LIST changes: +PERCOCET 5-3251 TAB PO; +ZOVIRAX800 MG PO
[2021-04-08 09:48] VITALS: Ht 157.5 cm; Wt 65.5 kg
[2021-04-08 10:44] LABS: BASOPHILS 0.7 % (0-2); EOSINOPHILS 1.7 % (0-7); HEMATOCRIT 40.9 % (42.0-54.0); HEMOGLOBIN 13.4 g/dL (13.5-17.5); LYMPHOCYTES 27.6 % (15-50); MCH 35.4 pg (26.0-34.0); MCHC 32.8 g/dL (31.0-37.0); MCV 107.9 fL (80.0-100.0); MEAN PLATELET VOLUME 8.7 fL (7.4-10.4); MONOCYTES 8.1 % (2-11); NEUTROPHILS 61.9 % (40-80); RBC 3.79 10x6/uL (4.20-6.10); RDW 14.5 % (11.5-14.5); WBC 6.1 10x3/uL (4.8-10.8)
[2021-04-08 10:50] LABS: PLATELET COUNT 223 10x3/uL (130-400)
[2021-04-08 10:55] LABS: APTT 27.6 SECONDS (22.8-39.4); INR 1.08 (0.85-1.17); PROTIME 12.9 SECONDS (11.6-15.0)
[2021-04-08 10:56] LABS: CALC OSMOLALITY 278 mosm/kg (275-300); CALCIUM 9.4 mg/dL (8.5-10.1); CARBON DIOXIDE 27.8 mmol/L (21.0-32.0); CHLORIDE - SERUM 103 mmol/L (98-107); CREATININE - SERUM 1.1 mg/dL (0.6-1.3); GLUCOSE 95 mg/dL (74-106); POTASSIUM - SERUM 4.2 mmol/L (3.5-5.1); SODIUM 139 mmol/L (136-145); UREA NITROGEN 16 mg/dL (7-18); eGFR NON AFRICAN AMERICAN 67 mL/min (90-120)
[2021-04-08 11:14] LABS: ALBUMIN 3.6 g/dL (3.4-5.0); ALKALINE PHOSPHATASE 105 U/L (30-120); ALT (SGPT) 22 U/L (10-68); BILIRUBIN - TOTAL 0.54 mg/dL (0.2-1.3); CKMB 0.6 U/L (0.0-3.6); CREATINE KINASE 60 UL (21-232); MAGNESIUM - SERUM 2.1 mg/dL (1.8-2.4); PROTEIN - SERUM 6.9 g/dL (6.4-8.2); THYROID STIMULATING HORMONE 1.23 uIU/mL (0.36-3.74)
[2021-04-08 11:15] LABS: TROPONIN-I < 0.017 ng/mL (0.000-0.060)
[2021-04-08 12:00] VITALS: BP 167/78
== END 2021-04-08 12:01 | disposition home or self-care (01) ==
LOC: D.ER 09:46
PROVIDERS: Family Medicine
DX: R25.1 Tremor, unspecified (principal); G20 Parkinson's disease; Z86.73 Personal history of transient ischemic attack (TIA), and cerebral infarction without residual deficits; I10 Essential (primary) hypertension; K21.9 Gastro-esophageal reflux disease without esophagitis